=== PATIENT | female | born 1990 | race Caucasian/White ===

== ENCOUNTER 2016-12-17 12:36 | Emergency (ER) | payer MEDICAID ==
--- NOTE | 2016-12-17 12:38 | ED Physician Chart ---
Chief Complaint/HPI - Patient Information Date Seen:: 12/17/16 Time Seen:: 12:38 Chief Complaint:: scalp itchiness History of Present Illness:: 26-year-old female complains of acute, worsening, constant, moderate to severe, scalp itching 7 days. Has associated small wounds on her scalp from excessive itching. Denies numbness, tingling, fevers, chills, nausea, vomiting, dysuria, gross hematuria, acute vision changes, headache. Says symptoms started after she went swimming. Allergies:: Allergies Allergy/AdvReac Type Severity Reaction Status Date / Time No Known Allergies Allergy Verified 04/06/16 09:40 Historian:: Patient Review:: Nurse's Note Reviewed Review of Systems - Review of Systems Other: Complete system review otherwise unremarkable except as noted in history of present illness. Past Medical History - Past Medical History Past Medical History: No significant medical hx Family History: None Social History: Non Smoker, No Alcohol, No Drug Use Surgical History: None Psychiatricy History: None Family Medical History - Family Member Mother History Unknown: Yes Living Status: Still Living Grandfather History Unknown: Yes Physical Exam - Physical Examination Other:: INITIAL VITAL SIGNS: Reviewed by me GENERAL: Alert and interactive. No acute distress HEAD: Head is normocephalic and atraumatic. Scalp has areas of erythema and slight scabbing. EYES: EOMI. PERRL. No scleral icterus. No conjunctival injection ENT: Moist mucous membranes. NECK: Supple. No masses. Full range of motion RESPIRATORY: No tachypnea. Clear breath sounds bilaterally. No wheezing, rales, or rhonchi CV: Regular rate and rhythm. No murmurs, rubs, or gallops ABDOMEN: Soft, non-distended, non-tender. No guarding. No rebound. No masses. EXTREMITIES: No deformity. No cyanosis. No edema. SKIN: Warm and dry. No obvious rashes. NEUROLOGIC: Alert and oriented. Face is symmetric. Speech is normal. Moves all extremities equally. Motor and sensory distally intact. ED Septic Shock - . Is Septic Shock (SBP<90, OR Lactate>4 mmol\L) present?: No Reassessment (Disposition) - Reassessment Reassessment:: Patient presents with acute, worsening, scalp itching for the past week. Says this started after she was swelling. Has some slight scabbing areas and redness. He has some dermatitis of the scalp. We will prescribe oral antibiotics as prophylaxis. We have also given a prescription for Sebex shampoo. Recommend follow-up primary care 1-2 days for checkup. Return to ER precautions were given. Patient says she understands and agrees the plan. Reassessment Condition:: Improved - Diagnosis Diagnosis:: Acute pruritus of the scalp due to acute dermatitis of the scalp - Aftercare/Follow up Instructions Aftercare/Follow-Up Instructions:: Counseled pt regarding lab results/diagnosis & need follow up, Refer to Discharge Instructions Medication Prescribed:: Sebex shampoo Keflex Bactrim DS - Patient Disposition Discharge/Transfer:: Home Time:: 13:01 Condition at Disposition:: Improved ED Discharge Plan - Patient Disposition Admit/Discharge/Transfer: PT DISCHARGED HOME Condition at Disposition: Improved Instructions: Pruritus, Seborrheic Dermatitis-Brief
== END 2016-12-17 13:15 | disposition home or self-care (01) ==
LOC: ER 12:36
DX: L30.8 Other specified dermatitis (principal)
CPT/HCPCS: Z7502